=== PATIENT | female | born 1985 | race African-American/Black ===

== ENCOUNTER 2017-03-17 15:57 | Emergency (ER) | payer OTHER ==
[~2017-03-17] VITALS: Ht 165.1 cm; Wt 95.4 kg
[~2017-03-17 15:57] MED LIST: ALBUTEROL2.5 MG/3 M IH; ASMANEX HFA13 GM IH; CETIRIZINE HCL10 M2 PO; CLINDAMYCIN HC300 MG PO; DITROPAN5 MG PO; DUONEB 2.5-0.5 M3 ML IH; FLEXERIL10 MG PO; HYDROCHLOROTH12.5 M3 PO; IBUPROFEN600 MG PO; LEVAQUIN500 MG PO; LEVOFLOXACIN750 MG PO; MONTELUKAST SOD10 MG PO; MOTRIN800 MG PO; NAPROSYN500 MG PO; NAPROXEN500 MG PO; NORCO 5/3251 TABLET PO; PERCOCET 5/31 TABLET PO; PREDNISONE10 MG PO; PREDNISONE20 MG PO; PROVENTIL,2.5 MG/3 M IH; PULMICORT FLE180 MCG IH; TAMIFLU75 MG PO; TESSALON PERLE100 MG PO; TYLENOL REGULA325 MG PO; ULTRACET1 TABLET PO; VENTOLIN HFA18 GM IH; ZITHROMAX Z-PA250 MG PO; ZOFRAN ODT8 MG PO
[2017-03-17 18:22] LABS: HEMATOCRIT 30.2 % (36.0-46.0); MCH 20.7 PG (29.0-34.0); MCHC 28.5 G/DL (30.0-36.0); MCV 72.8 FL (83-99); MEAN PLAT.VOLUME 9.1 uM^3 (9.5-12.4); PLATELET COUNT 361 K/uL (156-360); RBC DIS.WIDTH-CV 17.4 % (11.8-14.6); RBC DIS.WIDTH-SD 45.8 % (39-53); RED BLOOD COUNT 4.15 M/uL (3.80-5.20); WHITE BLOOD COUNT 5.3 K/uL (4.1-10.2)
[2017-03-17 18:30] LABS: CHLORIDE 108 mEq/L (99-109); POTASSIUM 4.5 mEq/L (3.7-5.4); SODIUM 139 mEq/L (136-147)
[2017-03-17 18:31] LABS: D-DIMER ELISA 0.42 mg/L FEU (< 0.57); GLUCOSE 139 mg/dL (70-99)
[2017-03-17 18:33] LABS: ANION GAP 6 MEQ/L (2-14)
[2017-03-17 18:35] LABS: GFR ESTIMATE (CALCULATED) > 59 mL/min/
[2017-03-17 18:36] LABS: UREA NITROGEN (BUN) 10 mg/dL (9-23)
[2017-03-17 18:43] LABS: QUANTITATIVE HCG < 4.0 MIU/ML
[2017-03-17 18:55] VITALS: BP 109/76
== END 2017-03-17 18:56 | disposition home or self-care (01) ==
LOC: EME 15:57
PROVIDERS: Physician Assistant
DX: M79.89 Other specified soft tissue disorders (principal); Z87.891 Personal history of nicotine dependence
CPT/HCPCS: 71020; 80048; 84702; 85027; 85379; 99281; 99283

== ENCOUNTER 2017-04-06 18:38 | Emergency (ER) | payer OTHER ==
[~2017-04-06] VITALS: Ht 165.1 cm; Wt 93.7 kg
[2017-04-06 21:05] LABS: MCH 20.7 PG (29.0-34.0); MCHC 28.1 G/DL (30.0-36.0); MCV 73.6 FL (83-99); MEAN PLAT.VOLUME 9.7 uM^3 (9.5-12.4); PLATELET COUNT 351 K/uL (156-360); RBC DIS.WIDTH-CV 17.6 % (11.8-14.6); RBC DIS.WIDTH-SD 46.9 % (39-53); RED BLOOD COUNT 4.35 M/uL (3.80-5.20); WHITE BLOOD COUNT 5.2 K/uL (4.1-10.2)
[2017-04-06 21:07] LABS: CHLORIDE 113 mEq/L (99-109); D-DIMER ELISA 0.98 mg/L FEU (< 0.57); POTASSIUM 3.6 mEq/L (3.7-5.4); SODIUM 141 mEq/L (136-147)
[2017-04-06 21:08] LABS: GLUCOSE 133 mg/dL (70-99)
[2017-04-06 21:10] LABS: ANION GAP 8 MEQ/L (2-14)
[2017-04-06 21:12] LABS: GFR ESTIMATE (CALCULATED) > 59 mL/min/
[2017-04-06 21:13] LABS: UREA NITROGEN (BUN) 10 mg/dL (9-23)
[2017-04-06] MEDS ORDERED: PROVENTIL HFA6.7 GM IH (23:39)
[2017-04-06] MEDS ORDERED: LEVAQUIN750 MG PO (23:39)
[2017-04-06] MEDS ORDERED: PREDNISONE20 MG PO (23:39)
[2017-04-07 00:20] VITALS: BP 144/89
== END 2017-04-07 00:26 | disposition home or self-care (01) ==
LOC: EME 18:38
PROVIDERS: Emergency Medicine
DX: J18.9 Pneumonia, unspecified organism (principal); Z87.891 Personal history of nicotine dependence
CPT/HCPCS: 71020; 71275; 80048; 85027; 85379; 93005; 94640; 94640 76; 99281; 99285; J1956; J7512

== ENCOUNTER 2017-05-21 19:38 | Emergency (ER) | payer OTHER ==
[~2017-05-21] VITALS: Ht 165.1 cm; Wt 91.1 kg
[~2017-05-21 19:38] MED LIST changes: +LEVAQUIN750 MG PO; +PROVENTIL HFA6.7 GM IH
[2017-05-21] MEDS ORDERED: PEN-VEE K,VEET500 MG PO (20:54)
[2017-05-21] MEDS ORDERED: ULTRAM50 MG PO (20:54)
[2017-05-21 20:59] VITALS: BP 145/90
== END 2017-05-21 21:22 | disposition home or self-care (01) ==
LOC: EME 19:38
PROC: 3E0T3BZ Introduction of Anesthetic Agent into Peripheral Nerves and Plexi, Percutaneous Approach (ICD-10-PCS; principal; 2017-05-21)
DX: K08.89 Other specified disorders of teeth and supporting structures (principal)
CPT/HCPCS: 99281; 99284

== ENCOUNTER 2017-10-18 11:54 | Inpatient (IN) | payer OTHER ==
[~2017-10-18] VITALS: Ht 165.1 cm; Wt 97.0 kg
[~2017-10-18 11:54] MED LIST changes: +PEN-VEE K,VEET500 MG PO; +ULTRAM50 MG PO
[2017-10-18 13:03] LABS: HEMATOCRIT 32.6 % (36.0-46.0); HEMOGLOBIN 9.5 G/DL (11.9-15.5); MCH 21.1 PG (29.0-34.0); MCHC 29.1 G/DL (30.0-36.0); MCV 72.3 FL (83-99); PLATELET COUNT 450 K/uL (156-360); RBC DIS.WIDTH-CV 17.2 % (11.8-14.6); RBC DIS.WIDTH-SD 44.1 % (39-53); RED BLOOD COUNT 4.51 M/uL (3.80-5.20)
[2017-10-18 13:07] LABS: CHLORIDE 110 mEq/L (99-109); POTASSIUM 3.9 mEq/L (3.7-5.4); SODIUM 141 mEq/L (136-147)
[2017-10-18 13:09] LABS: GLUCOSE 127 mg/dL (70-99)
[2017-10-18 13:13] LABS: CREATININE 0.8 mg/dL (0.6-1.3); GFR ESTIMATE (CALCULATED) > 59 mL/min/
[2017-10-18 13:14] LABS: UREA NITROGEN (BUN) 9 mg/dL (9-23)
[2017-10-18 13:54] LABS: CARBON DIOXIDE (BICARBONATE) 27.7 MEQ/L (20-31)
[2017-10-18] MEDS ORDERED: SINGULAIR10 MG PO (16:40)
[2017-10-18] MEDS ORDERED: DESYREL100 MG PO (16:41)
[2017-10-18 19:48] VITALS: BP 138/86
[2017-10-18 22:39] VITALS: BP 152/70
[2017-10-19 07:00] LABS: CHLORIDE 106 MEQ/L (99-109); CREATININE 0.7 MG/DL (0.6-1.3); GFR ESTIMATE (CALCULATED) > 59 mL/min/; SODIUM 137 MEQ/L (136-147); UREA NITROGEN (BUN) 10 mg/dL (9-23)
[2017-10-19 07:05] LABS: GLUCOSE 226 mg/dL (70-99)
[2017-10-19 07:10] LABS: HEMATOCRIT 33.1 % (36.0-46.0); HEMOGLOBIN 9.3 G/DL (11.9-15.5); MCH 20.4 PG (29.0-34.0); MCHC 28.1 G/DL (30.0-36.0); MCV 72.6 FL (83-99); PLATELET COUNT 470 K/uL (156-360); RBC DIS.WIDTH-CV 17.2 % (11.8-14.6); RBC DIS.WIDTH-SD 44.6 % (39-53); RED BLOOD COUNT 4.56 M/uL (3.80-5.20); WHITE BLOOD COUNT 9.1 K/uL (4.1-10.2)
[2017-10-19 08:35] VITALS: BP 141/86
[2017-10-19 15:15] VITALS: BP 177/87
[2017-10-19 23:25] VITALS: BP 145/67
[2017-10-20 06:41] LABS: BASOPHIL (%) 0 % (0-1); EOSINOPHIL (%) 0 % (0-5); HEMATOCRIT 30.1 % (36.0-46.0); HEMOGLOBIN 8.5 G/DL (11.9-15.5); IMMATURE GRANULOCYTE (%) 1.2 % (0.0-0.7); LYMPHOCYTE (%) 5.9 % (15-42); LYMPHOCYTE COUNT 0.9 K/uL (1.0-2.8); MCH 20.8 PG (29.0-34.0); MCHC 28.2 G/DL (30.0-36.0); MCV 73.6 FL (83-99); MONOCYTE (%) 3.1 % (3-12); MONOCYTE COUNT 0.5 K/uL (0-0.8); NEUTROPHIL (%) 89.8 % (45-76); PLATELET COUNT 453 K/uL (156-360); RBC DIS.WIDTH-CV 17.3 % (11.8-14.6); RBC DIS.WIDTH-SD 46.1 % (39-53); RED BLOOD COUNT 4.09 M/uL (3.80-5.20); WHITE BLOOD COUNT 15.6 K/uL (4.1-10.2)
[2017-10-20 06:57] LABS: CHLORIDE 108 MEQ/L (99-109); CREATININE 0.8 MG/DL (0.6-1.3); GFR ESTIMATE (CALCULATED) > 59 mL/min/; GLUCOSE 302 mg/dL (70-99); POTASSIUM 5.2 MEQ/L (3.7-5.4); SODIUM 137 MEQ/L (136-147); UREA NITROGEN (BUN) 15 mg/dL (9-23)
[2017-10-20 07:33] VITALS: BP 153/74
[2017-10-20] MEDS ORDERED: PREDNISONE10 MG PO (13:23)
[2017-10-20] MEDS ORDERED: FEOSOL325 MG PO (14:18)
== END 2017-10-20 15:05 | disposition home or self-care (01) | DRG 202 ==
LOC: EME 11:54 → EDOF 16:40 → ENRESERV 16:51 → 5EAST 19:41
PROVIDERS: Family Medicine; Physician Assistant
DX: J20.9 Acute bronchitis, unspecified (principal); J45.901 Unspecified asthma with (acute) exacerbation; E11.65 Type 2 diabetes mellitus with hyperglycemia; I10 Essential (primary) hypertension; G47.30 Sleep apnea, unspecified; D50.9 Iron deficiency anemia, unspecified; R00.0 Tachycardia, unspecified; R07.89 Other chest pain; E66.9 Obesity, unspecified; Z68.35 Body mass index [BMI] 35.0-35.9, adult; Z87.891 Personal history of nicotine dependence
CPT/HCPCS: 71046; 80048; 82803; 85025; 85027; 94640; 94640 76; 94644; 99202; 99281; 99284; J0456; J1885; J2405; J2930

== ENCOUNTER 2017-12-27 04:03 | Inpatient (IN) | payer OTHER ==
[~2017-12-27] VITALS: Ht 165.1 cm; Wt 93.8 kg
[~2017-12-27 04:03] MED LIST changes: +DESYREL100 MG PO; +FEOSOL325 MG PO; +SINGULAIR10 MG PO
[2017-12-27 05:10] LABS: CHLORIDE 109 mEq/L (99-109); SODIUM 138 mEq/L (136-147)
[2017-12-27 05:12] LABS: GLUCOSE 92 mg/dL (70-99)
[2017-12-27 05:16] LABS: CREATININE 0.7 mg/dL (0.6-1.3); GFR ESTIMATE (CALCULATED) > 59 mL/min/
[2017-12-27 05:17] LABS: UREA NITROGEN (BUN) 10 mg/dL (9-23)
[2017-12-27 05:18] LABS: HEMATOCRIT 32.5 % (36.0-46.0); HEMOGLOBIN 9.6 G/DL (11.9-15.5); MCH 21.2 PG (29.0-34.0); MCHC 29.5 G/DL (30.0-36.0); MCV 71.7 FL (83-99); PLATELET COUNT 403 K/uL (156-360); RBC DIS.WIDTH-CV 17.2 % (11.8-14.6); RBC DIS.WIDTH-SD 44.3 % (39-53); RED BLOOD COUNT 4.53 M/uL (3.80-5.20); WHITE BLOOD COUNT 7.7 K/uL (4.1-10.2)
[2017-12-27 06:22] LABS: QUANTITATIVE HCG < 4.0 MIU/ML
[2017-12-27] MEDS ORDERED: ZYRTEC10 M3 PO (09:22)
[2017-12-27 14:25] VITALS: BP 140/78
[2017-12-27 14:39] VITALS: BP 140/78
[2017-12-27 20:26] VITALS: BP 143/82
[2017-12-28] VITALS: BP 139/70
[2017-12-28 04:27] VITALS: BP 139/66
[2017-12-28 08:15] VITALS: BP 126/67
[2017-12-28 11:32] VITALS: BP 138/72
[2017-12-28 16:09] VITALS: BP 135/68
[2017-12-28 16:31] VITALS: BP 159/82
[2017-12-29 00:02] VITALS: BP 141/66
[2017-12-29 03:35] VITALS: BP 142/65
[2017-12-29 05:28] LABS: BASOPHIL (%) 0 % (0-1); EOSINOPHIL (%) 0 % (0-5); HEMATOCRIT 31.5 % (36.0-46.0); HEMOGLOBIN 9.1 G/DL (11.9-15.5); IMMATURE GRANULOCYTE (%) 1.4 % (0.0-0.7); LYMPHOCYTE (%) 6.8 % (15-42); LYMPHOCYTE COUNT 1.4 K/uL (1.0-2.8); MCH 21.2 PG (29.0-34.0); MCHC 28.9 G/DL (30.0-36.0); MCV 73.3 FL (83-99); MONOCYTE (%) 5.3 % (3-12); MONOCYTE COUNT 1.1 K/uL (0-0.8); NEUTROPHIL (%) 86.5 % (45-76); NEUTROPHIL COUNT 17.7 K/uL (1.8-6.4); PLATELET COUNT 423 K/uL (156-360); RBC DIS.WIDTH-CV 17.9 % (11.8-14.6); RBC DIS.WIDTH-SD 46.6 % (39-53); WHITE BLOOD COUNT 20.5 K/uL (4.1-10.2)
[2017-12-29 05:53] LABS: CHLORIDE 109 MEQ/L (99-109); CREATININE 0.7 MG/DL (0.6-1.3); GFR ESTIMATE (CALCULATED) > 59 mL/min/; SODIUM 137 MEQ/L (136-147); UREA NITROGEN (BUN) 12 mg/dL (9-23)
[2017-12-29 05:55] LABS: GLUCOSE 268 mg/dL (70-99); POTASSIUM 5.1 MEQ/L (3.7-5.4)
[2017-12-29 07:26] VITALS: BP 120/67
[2017-12-29 12:00] VITALS: BP 134/80
[2017-12-29] MEDS ORDERED: PREDNISONE10 MG PO (13:41)
[2017-12-29] MEDS ORDERED: AUGMENTIN875 MG PO (13:41)
== END 2017-12-29 16:11 | disposition home or self-care (01) | DRG 193 ==
LOC: EME 04:03 → EDOF 06:52 → ENRESERV 07:01 → EDOF 07:24 → ENRESERV 07:57 → 4EAST 14:23 → ENRESERV 12-28 14:36 → 3EAST 12-28 16:27
PROVIDERS: Emergency Medicine; Family Medicine
DX: J18.0 Bronchopneumonia, unspecified organism (principal); J45.901 Unspecified asthma with (acute) exacerbation; J96.01 Acute respiratory failure with hypoxia; D50.9 Iron deficiency anemia, unspecified; R73.9 Hyperglycemia, unspecified; T38.0X5A Adverse effect of glucocorticoids and synthetic analogues, initial encounter; E66.01 Morbid (severe) obesity due to excess calories; Z68.34 Body mass index [BMI] 34.0-34.9, adult; Z87.891 Personal history of nicotine dependence
CPT/HCPCS: 71046; 71275; 80048; 84702; 85025; 85027; 85379; 93005; 94640; 94640 76; 94644; 94760; 94799; 99202; 99281; 99285; J0456; J0696; J2930; J3475; J7512

== ENCOUNTER 2018-03-21 12:07 | Emergency (ER) | payer OTHER ==
[~2018-03-21] VITALS: Ht 165.1 cm; Wt 97.0 kg
[~2018-03-21 12:07] MED LIST changes: +AUGMENTIN875 MG PO; +ZYRTEC10 M3 PO
[2018-03-21] MEDS ORDERED: PREDNISONE20 MG PO (13:33)
[2018-03-21] MEDS ORDERED: VENTOLIN HFA18 GM IH (13:33)
[2018-03-21] MEDS ORDERED: DUONEB 2.5-0.5 M3 ML AEROSOL (13:33)
[2018-03-21 15:32] VITALS: BP 138/80
== END 2018-03-21 15:35 | disposition home or self-care (01) ==
LOC: EME 12:07
DX: J45.901 Unspecified asthma with (acute) exacerbation (principal); Z77.22 Contact with and (suspected) exposure to environmental tobacco smoke (acute) (chronic); E11.9 Type 2 diabetes mellitus without complications; G47.30 Sleep apnea, unspecified; Z87.891 Personal history of nicotine dependence
CPT/HCPCS: 94640; 94640 76; 99281; 99283; J7512